=== PATIENT | male | born 1980 | race Two or more races ===

== ENCOUNTER 2025-05-01 19:58 | Emergency (ER) | payer OTHER ==
[~2025-05-01] VITALS: Ht 165.1 cm; Wt 84.0 kg
--- NOTE | 2025-05-01 21:40 | ED.PDOC ---
History of Present Illness HPI Comments 44 y/o obese, Frisian speaking M, with significant medical history, presents with c/c of occipital headache, with associated dizziness. Endorsement of 2x week history of symptoms. Pain is nonradiating. He comments on having difficulty ambulating secondary to dizziness onset. No modifying factors. No reported recent injuries, sick contacts, previous ailments, or further pertinent medical, surgical, social, or family history. Denial of any lightheadedness, vision or speech changes, facial droop, or further associated symptoms. Chief Complaint: Headache Time Seen by MD: 21:20 Reviewed Notes: Nurses Notes, Medications, Allergies Information Source: Patient Mode of Arrival: Ambulatory Severity: Moderate Timing: Weeks Duration: Since onset Prehospital treatment: None Past Medical History PAST MEDICAL HISTORY: Denies Surgical History: Denies all surgeries Family History Family History: Unknown Social History Smoker: Non-Smoker Alcohol: Denies ETOH Use Drugs: Denies Drug Use Lives In: Home All Other Systems: Reviewed and Negative (Comprehensive systems review obtained and negative except for what is stated in the HPI.) Physical Exam General Appearance: Moderate Distress HEENT: Normal ENT Inspection, Pharynx Normal, TMs Normal Neck: Full Range of Motion, Non-Tender, Normal, Normal Inspection Respiratory: Chest Non-Tender, Lungs Clear, No Accessory Muscle Use, No Respiratory Distress, Normal Breath Sounds Cardiovascular: No Edema, No JVD, No Murmur, No Gallop, Normal Peripheral Pulses, Regular Rate/Rhythm Breast Exam: Deferred Gastrointestinal: No Organomegaly, Non Tender, No Pulsatile Mass, Normal Bowel Sounds, Soft Genitalia: Deferred Pelvic: Deferred Rectal: Deferred Extremities: No calf tenderness, Normal capillary refill, Normal inspection, Normal range of motion, Non-tender, No pedal edema Musculoskeletal : Apperance: Normal Neurologic: Alert, test rack operator II-XII nml as Tested, No Motor Deficits, Normal Affect, Normal Mood, No Sensory Deficits Cerebellar Function: Normal Reflexes: Normal Skin: Dry, Normal Color, Warm Peripheral Pulses: 3+ Radial (R), 3+ Radial (L) Lymphatic: No Adenopathy Was a procedure done? Was a procedure done?: No Differential Dx Considerations may include: cluster migraines, tension headache, meningitis, viral syndrome, intracranial bleed, among others X-Ray, Labs, Meds, VS Vital Signs Date Time Temp Pulse Resp B/P (MAP) Pulse Ox O2 Delivery O2 Flow Rate FiO2 05/01/25 20:01 98.3 95 16 150/90 96 98.3 Patient alert pain Came in because of headache. Vitals stable. Answering questions. Ambulating. Blood pressure slightly elevated. Denies taking any kind of medications. Saturation pristine on room air. CT of the head reviewed does not show any acute changes pain Was given prescription of meclizine. Explained to the patient. Was told to follow up with his primary care physician. Was told to come back if there is any problem. Time of 1ST Reevaluation: 21:50 Reevaluation 1ST: Improved Patient Education/Counseling: Diagnosis, Treatment, Need For Follow Up Family Education/Counseling: No Family Present SEPSIS Sepsis Screen Date sepsis recognized/suspect: May 01, 2025 Time Sepsis recognized/suspect: 2003 Recent Procedure: No On Antibiotic Therapy: No Respiratory Rate >20: No Heart Rate >90: No Temp<36 C (96.8 F) or >38.3 C: No SBP <90 or MAP <65 mmHG: No New Acute Mental Status Change: No Is the patient on CPAP, BIPAP,: No Physician Orders Head Without Contrast (05/01/25 21:28) Urinalysis (05/01/25 21:28) Vital Signs Date Time Temp Pulse Resp B/P (MAP) Pulse Ox O2 Delivery O2 Flow Rate FiO2 05/01/25 20:01 98.3 95 16 150/90 96 98.3 Departure 1 Departure Time of Disposition: 22:53 Impression: Primary Impression: Autonomic disorder Additional Impression: HTN (hypertension) Qualified Codes: I10 - Essential (primary) hypertension Disposition: HOME / SELF CARE / HOMELESS Condition: Good e-Prescriptions Meclizine Hcl (Meclizine Hcl) 12.5 Mg Tab 1 TAB PO BID for 5 Days, #10 TAB Prov: MARCELO PENDLETON MD 05/01/25 Discharged With: Self Critical Care Note Critical Care Time?: No Stability Stability form required: No Heart Score Heart Score: Heart Score Response (Comments) Value History N/A 0 EKG N/A 0 Age N/A 0 Risk Factors N/A 0 Troponin N/A 0 Total 0 I personally scribed for MARCELO PENDLETON MD ([email or web address]) on 05/01/25 at 21:40. Electronically submitted by Felix [email or web address]). MARCELO PENDLETON MD May 01, 2025 21:40
--- NOTE | 2025-05-01 21:52 | DVH ---
EXAM: CT HEAD WITHOUT CONTRAST INDICATION: dizzy TECHNIQUE: CT of the head without intravenous contrast. Radiation Dose : 1. Head: CT Dose: CTDI volume is 53.6 mGy. Dose-length product is 859.39 mGy*cm The dose indicators for CT are the volume Computed Tomography (CT) Dose Index (CTDIvol) and the Dose Length Product (DLP), and are measured in units of mGy and mGy-cm, respectively. These indicators are not patient dose, but values generated from the CT scanner acquisition factors. The report includes radiation exposure data for exposures received during this examination. COMPARISON: None FINDINGS: Brain: No acute hemorrhage, mass effect, or cerebral edema. CSF Spaces: Size and morphology within normal limits. Bones/Soft Tissues: No acute findings. Orbits/Sinuses/Mastoids: Unremarkable as visualized. IMPRESSION: 1. No acute intracranial abnormality. Radiation optimization: All CT scans at this facility use at least one of these dose optimization carmen hniques: automated exposure control mA and/or kV adjustment per patient size (includes targeted exam s where dose is matched to clinical indication) or iterative reconstruction.
[2025-05-01] MEDS ORDERED: MECL12.586 PO (22:54)
[2025-05-02 00:13] VITALS: BP 123/80; PULSE 58; RESP 20; TEMP 98.2; O2SAT 96
== END 2025-05-02 00:16 | disposition home or self-care (01) ==
LOC: ER 19:58
DX: G90.9 Disorder of the autonomic nervous system, unspecified (principal); I10 Essential (primary) hypertension
CPT/HCPCS: 70450